=== PATIENT | male | born 1980 | race Caucasian/White ===

== ENCOUNTER → 2024-11-03 | Outpatient (CLI) | payer MEDICAID, SELFPAY ==
--- NOTE | 2024-11-03 10:28 | ST.MBS ---
Modified Barium Swallow Patient Information Study Date: 11/03/24 Study Time: 13:00 Direct Billable Minutes: 95 Total Minutes procedure & reportin Diagnosis: Oropharyngeal dysphagia R13.12 Referring Physician: Andra Rizzo Reason for Referral: Assess swallow function, assess risk for aspiration, and determine recommendations for least restrictive diet textures and compensatory strategies to improve safety of swallow. Medical History: Hx of brain cancer 32 years ago s/p two brain surgeries for tumor resection w/ chemoradiation (whole brain radiation) treatment between surgeries. Pt went deaf in 2003 and had cochlear implant placed (deafness was a late effect of radiation treatment per mother?s report). Hx of 3 CVAs per pt?s mother. CVA 05/19/2023 with brain MRI that revealed both an acute and old CVA. Date of first CVA unknown. ST at [facility] and [facility] for rehabilitation following CVA in 05/2023. Right parietal mass (cholestreatoma) removal 02/2024. CVA 07/15/2024. MBSS 07/25/24 w/ CC recommending regular with thin liquids, chin tuck with liquids. Following w/ OP ST at [facility] rehab from 08/06/2024 to present for management of cognitive-linguistic impairment and dysphagia. Referred for repeat MBSS to reassess swallow function and aspiration risk. It is requested that straws be trialed during this MBSS from treating COAL FEEDER OPERATOR, Tj. Per mother, he has no difficulty w/ foods, but continues to cough from time to time w/ liquids. He reports utilizing chin tuck ~50% of the time. Current Diet Ordered: Regular textures / Thin liquids Dentition: Natural Teeth Mental Status: Impaired Respiratory Status: Oxygenating on Room Air Penetration-Aspiration Scale Penetration-Aspiration Scale: OBJECTIVE ASSESSMENT OF SWALLOW FUNCTION (QUANTITATIVE ? PER TRIAL): PENETRATION / ASPIRATION SCALE (AMES): 1 = does not enter airway 2 = enters airway/above vocal folds/ejected 3 = enters airway/above vocal folds/not ejected 4 = enters airway/contacts vocal folds/ejected 5 = enters airway/contacts vocal folds/not ejected 6 = enters airway/below vocal folds/ejected 7 = enters airway/below vocal folds/not ejected despite effort 8 = enters airway/below vocal folds/no effort VIDEOFLOROSCOPIC SCALE SCORE (AMES): Grade I = aspiration of material that has penetrated into the laryngeal vestibule, intact cough reflex Grade II = aspiration < 10 % of the bolus, intact cough reflex Grade III = aspiration of < 10 % of the bolus, reduced cough reflex or aspiration of > 10 % of the bolus, intact cough reflex Grade IV = aspiration of > 10 % of the bolus, reduced cough reflex Penetration-Aspiration Scale Score Thin Liquid via teaspoon: Result: 2= enter airway/above vocal folds/ejected Thin Liquid via teaspoon Trial 2: Result: 1= does not enter airway Thin Liquid via small single sip: cup: Result: 7= enters airways/below vocal folds/not ejected despite effort Thin Liquid via small single sip: cup Chin tuck: Result: 1= does not enter airway Thin Liquid via small single sip: cup Effortful swallow: Result: 2= enter airway/above vocal folds/ejected Comment: Trace residues of barium on the vocal folds prior to swallowing next trial, likely trace post prandial laryngeal penetration of this trial. [place] Thick Liquid via small single sip: cup: Result: 1= does not enter airway Pudding via teaspoon: Result: 1= does not enter airway Comment: Esophageal screen - Complete clearance. 1/2 Cookie: Result: 1= does not enter airway Comment: Reflexive cough prior to swallowing this trial (trace residues on vocal folds, likely from thin liquid trials). Thin Liquid via sequential sips:straw: Result: 1= does not enter airway Thin Liquid via sequential sips:straw Trial 2: Result: 5= enters airways/contacts vocal folds/not ejected Thin Liquid via sequential sips:straw Chin tuck: Result: 1= does not enter airway Comment: Cued chin tuck 2X, fully executed on second swallow. Pt is more apt to take sequential sips w/ straw despite COAL FEEDER OPERATOR cueing him each time to take a small sip. Oral Phase Labial Seal: Escape beyond mid-chin (partially due to COAL FEEDER OPERATOR providing second sip by tsp, no other concerns for poor labial seal) Tongue Control During Bolus Hold: Posterior escape of greater than half of bolus Bolus Preparation/Mastication: Slow prolonged chewing/mashing with complete recollection Bolus Transport/Lingual Motion: Delayed initiation of tongue motion Oral Residue: Residue collection on oral structures Pharyngeal Phase Initiation of Pharyngeal Swallow: Bolus head in pyriforms Soft Palate Elevation: No bolus between soft palate and pharyngeal wall Laryngeal Elevation: Partial superior movement thyroid cart/partial apprx aryt-epig petiole Anterior Hyoid Excursion: Partial anterior movement Epiglottic Movement: Complete inversion Laryngeal Vestibule Closure at Height of Swallow: Incomplete; narrow column of air/contrast in laryngeal vestibule Pharyngeal Stripping Wave: Present - complete Pharyngoesophageal Segment Opening: Complete distension and complete duration; no obstruction of flow Tongue Base Retraction: Trace column of contrast between tongue base & post. pharyngeal wall Pharyngeal Residue: Trace residue within or on pharyngeal structures Esophageal Phase Esophageal Clearance: Complete clearance Treatment Strategies Effects of treatment strategies attemped:: Effortful swallow = somewhat effective Chin tuck = effective Diagnosis/Impression Diagnosis: Mild-moderate oropharyngeal dysphagia R13.12 MBS Impressions: The oral phase is primarily marked by... -Decreased bolus control, most notable during straw trials w/ premature posterior loss to the pyriform sinuses prior to swallow onset. -Mild oral residue of cookie, which fully cleared w/ independent use of a second swallow. The pharyngeal phase is primarily marked by... -Delayed swallow onset. -Decreased airway closure due to decreased anterior hyoid excursion and laryngeal elevation. -Aspiration of thin liquids via cup w/ reflexive cough. Laryngeal penetration of thin liquids via straw to the vocal folds w/o complete ejection. Chin tuck was most effective in reducing risk for aspiration. Recommendations Diet: Regular Textures and Thin Liquids Compensatory Strategies: Small Bites, Small Sips (Chin tuck w/ liquids), Slow Rate, Sitting upright and Assist with verbal cues to use recommended strategies (Pt lives alone, consider visual table reminder for chin tuck) Recommend Repeat Modified Barium Swallow: TBD Need for Skilled Speech Therapy Services: Yes Comment: -Train the patient in use of strategies to decrease risk for aspiration. Consider use of visual reminders for home setting. -Ongoing assessment of diet tolerance of recommended textures. As pt continues oropharyngeal strengthening, trial liquids w/ COAL FEEDER OPERATOR w/o use of chin tuck, single sips. -Train the patient in oropharyngeal exercise program to improve bolus control, swallow onset, and airway closure (lingual resistance, Naveed, effortful swallows, CTAR). Education Completed: 1. Described result of evaluation., 2. Pt understands evaluation & agrees with goals and treatment plan., 4. Family/caregivers understand evaluation & agree w/ goals & tx plan. and 7. Pt requires further education on strategies & risks. Status Active ST Patient: Active Contact Information [facility] Speech Therapy:: Joselin Acosta M.A. CCC-COAL FEEDER OPERATOR? Speech-Language Pathologist?? [facility] [address] [place] [address]? [email or web address]?? [phone]
== END | disposition home or self-care (01) ==
DX: I69.321 Dysphasia following cerebral infarction (principal)
CPT/HCPCS: 74230; 92611

== ENCOUNTER 2024-12-15 13:30 | Outpatient (RCR) | payer MEDICAID, SELFPAY ==
--- NOTE | 2024-08-06 12:42 | HP.SP.EV_ITS ---
Visit History Visit Info Date of Eval: 08/06/24 Visit: 1 Patient's Approved Number of Visits: 30 Associate Professor Of Philosophy: [email or web address] History Attending Doctor: Referring Doctor: Reason for Referral: CVA RX HERE Medical Diagnosis: CVA Date of Onset of Diagnosis: 07-15-24 Previous speech therapy: Yes Results: [facility] and [facility] Gomez for rehabilitation following CVA 05/19/2023, Right parietal mass removal 02/2024, and second CVA 07/15/2024. MBSS 07/25/24 regular with thin liquids, chin tuck with liquids INSTALLATIONS INSPECTOR to obtain full report. 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 Pain Is pain an issue with your current prescribed condition?: No Personal Preferred language: Mongolian Patient Allergies Allergies Allergies: Allergies No Known Allergies Allergy (Verified 01/11/16 15:07) Subjective Dysphagia Symptoms Reported Symptoms/Problems with: Drooling, Difficulty Swallowing Liquids and Hx of Aspiration Current Diet Solids Current Diet: Regular Current Diet Liquids Current Liquids: Thin Other: Chin Tuck with liquids Lewis free water Protocol: No NPO Date Tube Placed: 2023 Objective Dysphagia Administered by Administered by: Self Thin Liquids Administred via: Cup and Straw Positioning: Chin Tuck Oral Transit: Delay > 1 seconds Bolus clearance: significant clearance/minimal residue Gagging: No Cough: delayed, weak reflexive cough and throat clear Pharyngeal phase: suspect pharyngeal deficits and laryngeal elevation mildly restricted slow initiation Patient Report: Patient accompanied by mother for assessment. Mother reports concerns for patient's impulsivity with intake, consuming large and multiple bites/sips without regard to swallow guidelines. Limited trials this date due to patient late arrival to appointment and extensive time spent collecting PMH. Patient consumed thin liquids via cup without overt indications of aspiration or penetration in 6/8 trials, with moderate verbal and visual cues for bolus size as well as depth and length of time for chin tuck. Patient with right anterior loss of liquids with cup 6/10, and unable to execute labial seal with straw unless utilizing linguam as block as compensatory strategy. Delayed reflexive cough with liquids via straw, in 3/7 trials. Moderate verbal and visual cues for bolus size, rate, and accuracy of chin tuck. Skilled ST POC to include diet analysis, ther ex, establishing and training in swallow strategies, and providing education for dysphagia management. Mother reports difficulty accessing ST services due to payor source, and patient has not received ST for over 3 weeks since MBSS. Mother requesting 2x/week for initial portion of POC as a result. Swallowing Impairment Contributing Factors to Swallowing Impairment: Difficulty Following Directions, Reduced Oral Strength/Coordination/Sensation, Impaired Oral-Pharyngeal Transport and Delayed Swallow Initiation Impact Impact on Safety & Functioning: Risk for Aspiration Recommendations Modified Barium Swallow/Cookie Swallow Recommended: Yes Swallowing Treatment: Yes Diet Texture Recommendations Solids: Regular (Level 7) Liquids: Thin (Level 0) Other liquids: Chin Tuck with liquids Lewis free water Protocol: No Safety Saftey Precautions/Swallowing Recommendations (Check all that Apply): Supervision Needed All Meals, Reduce Distractions, Needs Verbal Cues to Use Recommended Strategies, Small Sips & Bites when Eating, Multiple Swallows and Alternate Liquids & Solids Results Swallowing Within Normal Limits: No Swallowing Diagnosis: Oropharyngeal Phase Dysphagia (R13.12) Additional: Mild-Moderate Severity: Moderate Subjective Oral Motor Subjective Patient Reports: Drooling, Slurred Speech and Difficulty being Understood Facial Drooping: Right Dentures ill fitting: No Objective Oral Motor Oral Status Dentition: Missing Teeth Labial Impairment: Moderate Observation at Rest: Right Droop Closure: Drooling Pucker: Moderate Retraction: Moderate Alternating Pucker/Retraction: Moderate Involuntary Movement noted: No Lingual Impairment: Moderate Protrusion: Moderate Retraction: Mild Lateralization: Mild Involuntary Movement: No Jaw Impairment: WNL Opening: WNL Closing: WNL Involuntary Movement: No Respiratory Status Respiratory Status: Room Air Reference: Neuro-QoL instrument Radiation Oncology Patient Plan Plan Plan: Skilled ST indicated to remediate and compensate for functional impairments in swallowing, speech, and cognitive-linguistics impacting safety and independence with socialization and health management in the community. Recommendations Treatment Warranted: Yes Treatment Warranted: Speech Sound Production, Dysphagia and Cognition Progress Prognosis: Good Frequency Frequency: 2x /Week Duration: 8 weeks Visits in this POC: 16 Patient/Family Goal Patient/Family Goal: Improve swallowing and speech intelligibility Goals that are Established Determination:: Goals will be added/modified as deemed necessary and appropriate. Therapy will be discontinued when results of re-evaluation indicate therapy is no longer needed or lack of progress has been documented. Goal #1-5 Goal #1: Patient will participate in formal cognitive-linguistic and motor speech assessments. Goal #2: Patient will demonstrate no clinical indications of dysphagia or pulmonary compromise with regular diet and thin liquids with GAGAN for adhering to compensatory swallow guidelines. Goal #3: Patient will demonstrate independence with completion of prescribed oropharyngeal HEP 10x each. Education Patient has Indicated that the Following Identified Educational Needs: Hearing/Vision/Speech Impaired The Patient has indicated that they have no educational or learning abilities that may effect their care.: Yes Patient Instruction Patient Education: Diagnosis, Treatment Plan, Goals, Safety Precautions, Diet Level and Home Exercise Program Person Taught: Patient, Family and Primary Caregiver Teaching Method: Discussion, Demonstration and Teach Back Response to teaching: Verbalize Understanding and Reinforcement Needed
--- NOTE | 2024-08-06 13:28 | HP.PTEVAL_ITS ---
Patient's Visit Information Visit Information Visit Information: MIKE GOODMAN is a 44 year old M referred to Physical Therapy by Dr. Andra Rizzo DO with a diagnosis of CVA. Date of Evaluation: 08/06/24 Physical Therapist: HAYDEE Fernandez Visit Plan Frequency: 2x /Week Duration: 3 Months Plan: Pt goes by Valentín. HE HAS HAD A R THR. 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 IDEAS: foam work EO/EC etc to work vestibular system, static and dynamic balance, possible walk with rollator to get heel to toe pattern and bigger more fluent step length 2X/ week for 12 weeks for gait training, balance activities (dynamic and static (foam EO/EC)), steps, stepping over objects, steps, sit to stand and maintaining balance, strength of R LE, with HEP HEP: ALANNAH lyons Subjective Subjective: He goes by Valentín. Mom was present. He had 2 strokes and the last one was approx July 15. His mom picked him up to go to an appt at the [facility] and his speech was slurred and his walking was worse. His first stroke was in 2023 and then had 2 surgeries and was in [facility] for 8 day. He is struggling with steps and walking and balance. He can usually walk on flat floors but if he has to step down or step up. He tends to take baby steps. They are trying to encourage taking baby steps at home. Sit to stand he has to get his balance and then takes a few baby steps to get started. He is R handed. He has had a lot of falls. He fell in the shower 2 nights ago and he tripped over the ledge at the bottom of the shower. He lives on his own but he is staying with mom now. He will have surgery in September and goal is to get pt back home for a little bit before then. He has not driven since the stroke. He is not working right now. He just got approved for SS disability. He had a mass in his ear and it destroyed his balance center. His R is totally gone and his L is 25% there. He has had brain cancer and removed. He had a R hip replacement. He uses the can after his hip replacement but not after his stroke. Moms goal is for him to be able to walk outside without mom present. Drive down to the walking path and then be able to walk on the bike path. He also wants to get a 3 wheel bike. Objective Objective: sit to stand: able to stand up using 2 hand rails but has retro LOB and steps to correct his balance and needs min A Gait: walks with WBOS, very short stride especially with the R LE (R THR) and foot abducted. The R step does not clear L stance leg. Pt did have retro LOB standing and turning head to the L to talk to therapist.. min A to correct balance LE MMT: R hip 16 and L 18.5 R knee ext 25# and L 37.4 R knee flex 15 and L 14.7 Hip ABD R 4-/5 and L 4/5 Heel and toe raises: pt has decrease balance without UE support and with UE support he has decrease ankle AROM with DF/PF Stairs: up and down recip with 2 hand rails with decreased hip flexion ascending the steps and decreased ability to kick leg out into flexion to clear heel from the back of the step wtih CGA Walking SW holding onto // bars (like to ER R hip) with CGA Bridge 1/2 normal ROM bridge Stepping over an object... not able to clear object to step over it with 1 hand on // bar but able with 2 hands on // bars with CGA Standing on blue foam for 15 seconds before loses balance retro or uses arms on the side of the // bars Standing on blue foam with EC for 8 seconds and the loses balance BW Balance/Special Test Scores Lower Extremity Functional Score: 30 Goals Goal 1:: I HEP Goal Time Frame: 8-12 Weeks Goal 2:: Be able to walk entire dept with bigger stride length and more normal TEO without veering with CGA Goal Time Frame: 8-12 Weeks Goal 3:: Be able to sit to stand and maintain good standing balance once standing Goal Time Frame: 8-12 Weeks Goal 4:: Be able to step over 4-8 inch hurdles with CGA to be able to get into the shower. Goal Time Frame: 8-12 Weeks Rehabilitation Potential Rehabilitation Potential: Good Anticipated Interventions Patient/Client Instruction: Educate patient on: Condition and Plan of Care For the Purpose of:: To decrease pain, To increase ROM, To improve nutrient delivery to tissue, To improve muscle performance and motor function, To improve ability to perform ADL's, To increase tolerance to activity/condition/position, To improve performance and independence with ADL's, To decrease level of supervision to perform tasks, To improve ability of physical actions for home/community/work/leisure, To improve gait and locomotor functions, To decrease soft tissue restriction, To increase flexibility/ROM, To improve endurance, To improve balance and To improve safety with gait Therapeutic Exercise to Include: Strength training, Endurance training, Balance training, Body mechanics, Postural training, Flexibilty training, Gait and locomotor training, Neuromotor development, Active ROM and Dynamic Lumbar Stabilization For the Purpose of:: To decrease pain, To increase ROM, To improve nutrient delivery to tissue, To improve muscle performance and motor function, To improve ability to perform ADL's, To increase tolerance to activity/condition/position, To improve performance and independence with ADL's, To decrease level of fuller pervision to perform tasks, To improve ability of physical actions for home/community/work/leisure, To improve gait and locomotor functions, To improve health of tissue, To decrease soft tissue restriction, To increase flexibility/ROM, To improve endurance, To improve balance, To improve safety with gait and To assume or resume ADL's Functional Training to Include: Gait training For the Purpose of:: To improve gait and locomotor functions and To improve safety with gait Text: Thank you for the opportunity to evaluate your patient. For Medicare and Medicare HMO plans, please review the plan of care and approve it. It will need to be FAXED BACK to us at [phone] for Medicare purposes. For Medicare only, by signing this I certify the plan of care. Please let me know if there are questions or concerns regarding this plan of care. Physician Signature: Date:
--- NOTE | 2024-09-29 14:14 | HP.PTREVAL_ITS ---
Re-Evaluation Intro: Dr. Andra Rizzo, DO, It has been my pleasure to treat MIKE GOODMAN over the last 16 visits for CVA. Please see the progress note below for an update on the physical therapy plan of care! Subjective Subjective: Pt is having surgery on Sunday on his Thyroid. Pt reports that his gait is better but it is not where it should be. He has to walk slow or he will become off balance. Mom is very happy with the stuff we are doing here and seeing the results. Objective Objective/Function: Stepping over orange hurdles....he did not do well for the first 3 with hand on the 1/2 wall. He did better with the second three with hand on the 1/2 wall. He was able to do them with a straight cane X 6 of them Attempted walking with a straight cane and pt struggles with sequencing and does not advance the R LE past the L. His step length is very small FGA: 6 Plan Plan Plan: Hold chart until after cleared from Thyroid surgery. Balance/Gait/Functional tests Balance/Special Test Scores Functional Gait Assessment Score: 6 % Disability: 80.0000 Lower Extremity Functional Score: 41 Goals Goals Goal 1:: I HEP Goal Time Frame: 8-12 Weeks Goal 2:: Be able to walk entire dept with bigger stride length and more normal TEO without veering with CGA Goal Time Frame: 8-12 Weeks Goal Progress: Progressing Goal 3:: Be able to sit to stand and maintain good standing balance once standing Goal Time Frame: 8-12 Weeks Goal Progress: Goal Met Goal 4:: Be able to step over 4-8 inch hurdles with CGA to be able to get into the shower. Goal Time Frame: 8-12 Weeks Goal Progress: Progressing Goal 5:: Be able to walk with good sequence with a straight cane for extra s upport 1 lap around the dept Goal Time Frame: 12-16 Weeks Goal 6:: Be able to go up and down the steps with 1 rail and with 1 cane with CGA and verbal cues. Anticipated Interventions Anticipated Interventions Patient/Client Instruction: Educate patient on: Condition and Plan of Care For the Purpose of:: To decrease pain, To increase ROM, To improve nutrient delivery to tissue, To improve muscle performance and motor function, To improve ability to perform ADL's, To increase tolerance to activity/condition/position, To improve performance and independence with ADL's, To decrease level of supervision to perform tasks, To improve ability of physical actions for home/community/work/leisure, To improve gait and locomotor functions, To decrease soft tissue restriction, To increase flexibility/ROM, To improve endurance, To improve balance and To improve safety with gait Therapeutic Exercise to Include: Strength training, Endurance training, Balance training, Body mechanics, Postural training, Flexibilty training, Gait and locomotor training, Neuromotor development, Active ROM and Dynamic Lumbar Stabilization For the Purpose of:: To decrease pain, To increase ROM, To improve nutrient delivery to tissue, To improve muscle performance and motor function, To improve ability to perform ADL's, To increase tolerance to activity/condition/position, To improve performance and independence with ADL's, To decrease level of supervision to perform tasks, To improve ability of physical actions for home/community/work/leisure, To improve gait and locomotor functions, To improve health of tissue, To decrease soft tissue restriction, To increase flexibility/ROM, To improve endurance, To improve balance, To improve safety with gait and To assume or resume ADL's Functional Training to Include: Gait training For the Purpose of:: To improve gait and locomotor functions and To improve safety with gait Re-Evaluation Ending Re-evaluation ending: Please do not hesitate to contact me at [phone] by phone or if you have questions or concerns regarding this new plan of care! Sincerely, HAYDEE Fernandez
--- NOTE | 2024-10-27 12:15 | HP.SP.REEV ---
Visit History Visit Info Date of Eval: 08/06/24 Today is Visit #: 1 Patient's Approved Number of Visits: 30 Assistant Inventory Manager: AGUILA History Attending Doctor: Referring Doctor: Reason for Referral: CVA RX HERE Medical Diagnosis: CVA Date of Onset of Diagnosis: 07-15-24 Previous speech therapy: Yes Results: [facility] for rehabilitation following CVA 05/19/2023, Right parietal mass removal 02/2024, and second CVA 07/15/2024. MBSS 07/25/24 regular with thin liquids, chin tuck with liquids LOCAL OPERATOR to obtain full report. 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 Pain Is pain an issue with your current prescribed condition?: No Personal Preferred language: Ethiopian Patient Allergies Allergies Allergies: Allergies No Known Allergies Allergy (Verified 01/11/16 15:07) Previous/Current Goals Goals 1-5 Previous Goal #1: Patient will participate in formal cognitive-linguistic and motor speech assessments. Goal 1 Status: LOCAL OPERATOR administered The Brief Cognitive Assessment Tool (BCAT Form A), multi-domain cognitive instrument that assesses orientation, verbal recall, visual recognition, visual recall, attention, abstraction, language, executive functions, and visuo-spatial processing in adult and older adult populations. Patient scored 25/50, indicative of severe cognitive impairment. Scores are as follows: Orientation 4/6 Immediate Verbal Recall 4/4 Visual Recognition/Naming 3/3 Attention:5/7 Abstraction 3/3 Language 2/3 Executive Function 1/4 Visuo-Spatial 2/4 Delayed Verbal Recall 1/4, increased to 3/4 with min cues Immediate Story Recall 1/2 Delayed Visual Memory 1/3 Story Recognition 5/5 Previous Goal #2: Patient will demonstrate no clinical indications of dysphagia or pulmonary compromise with regular diet and thin liquids with GAGAN for adhering to compensatory swallow guidelines. Goal 2 Status: Patient endorses forgetting to execute chin tuck consistently at home. Therapeutic trials with thin water via cup to assess timeliness and depth of chin tuck for airway protection. Accuracy 7/10, increased to 10/10 with minimal verbal and visual cues. Patient has MBSS scheduled on 11/03/24 to determine current abilities with testing. Previous Goal #3: Patient will demonstrate independence with completion of prescribed oropharyngeal HEP (CTAR, Effortful, Ramya) 10x each. Goal 3 Status: Patient was educated on Naveed, Ramya, Effortful swallow and CTAR exercises at 1x a day for 20 reps. He was able to complete Ramya, Effortful and CTAR with cues but Naveed will need re-educated. He was provided written instructions for these. Also gave him a table card for using chin tuck to chest as mother reported MBSS (in [place] ) told him he was to do this but he isn't. Visual reminder may be helpful for him. Patient reported that he has focused on effortful swallow, and CTAR 5 times each twice a day. Previous Goal #4: Patient will complete alternating and divided attention tasks at 80% with minimal cues to promote safety and independence in the home/community. Goal 4 Status: Pt completing an alternating attention task via connecting colored dots based on a list of colors with 80% acc () with min-mod verbal and visual cues to recall where he left off in the puzzle if he lifted his pen. Completed alternating attention between conversation and sorting cards into categories. He was able to do sort red vs black while talking. When removing the hearts only he often stopped while speaking about his favorite movie/conversation. Previous Goal #5: Patient will utilize compensatory executive functioning / processing strategies identified and implemented during structured therapeutic tasks (i.e., note taking / list making, adhering to schedules, remove distractions, formulate a plan, double check work, talk out loud, etc.) to facilitate improved cognitive processing and achievement of the highest level of safe, independent functioning with 80% accuracy when given minimal cues. Goal 5 Status: Completion of medication management tasks as locating and correcting errors in mock medication digital media planner for training in compensatory strategies for planning, organization and interpretation of information. Moderate cues for task completion: Establish Routines: Consistent routines reduce decision fatigue and provide structure. Break Down Large Tasks: Divide complex tasks into smaller, more manageable steps. Develop a plan before initiating a task. Use Visual Aids: Calendars, checklists, and visual schedules can aid in organization and task completion. Limit Distractions: Create a dedicated workspace and minimize interruptions. Self-Reflection: Regularly assess progress and adjust strategies as needed. Interpreting med label per dosage: 4/4 (100%), ID error in digital media planner: 7/ (70%), Verbalize how to correct error: 10/10 (100%) Goals 6-10 Previous Goal #6: Patient will complete functional auditory/visual short term recall tasks at 80% with minimal cues for use of compensatory strategies. Goal 6 Status: Goal was not addressed in favor of previous goals. Previous Goal #7: Visual STM for 8 unrelated pictures/objects with >15 minute delay 10/14 with independent use of visualization and "mental picture". Goal 7 Status: Goal was not addressed in favor of previous goals. Subjective Dysphagia Symptoms Reported Symptoms/Problems with: Drooling, Difficulty Swallowing Liquids and Hx of Aspiration Current Diet Solids Current Diet: Regular Current Diet Liquids Current Liquids: Thin Other: Chin Tuck with liquids Lewis free water Protocol: No NPO Date Tube Placed: 2023 Objective Dysphagia Administered by Administered by: Self Thin Liquids Administred via: Cup and Straw Positioning: Chin Tuck Oral Transit: Delay > 1 seconds Bolus clearance: significant clearance/minimal residue Gagging: No Cough: delayed, weak reflexive cough and throat clear Pharyngeal phase: suspect pharyngeal deficits and laryngeal elevation mildly restricted slow initiation Patient Report: Patient accompanied by mother for assessment. Mother reports concerns for patient's impulsivity with intake, consuming large and multiple bites/sips without regard to swallow guidelines. Limited trials this date due to patient late arrival to appointment and extensive time spent collecting PMH. Patient consumed thin liquids via cup without overt indications of aspiration or penetration in 6/8 trials, with moderate verbal and visual cues for bolus size as well as depth and length of time for chin tuck. Patient with right anterior loss of liquids with cup 09/16, and unable to execute labial seal with straw unless utilizing linguam as block as compensatory strategy. Delayed reflexive cough with liquids via straw, in 3/7 trials. Moderate verbal and visual cues for bolus size, rate, and accuracy of chin tuck. Skilled ST POC to include diet analysis, ther ex, establishing and training in swallow strategies, and providing education for dysphagia management. Mother reports difficulty accessing ST services due to payor source, and patient has not received ST for over 3 weeks since MBSS. Mother requesting 2x/week for initial portion of POC as a result. Swallowing Impairment Contributing Factors to Swallowing Impairment: Difficulty Following Directions, Reduced Oral Strength/Coordination/Sensation, Impaired Oral-Pharyngeal Transport and Delayed Swallow Initiation Impact Impact on Safety & Functioning: Risk for Aspiration Recommendations Modified Barium Swallow/Cookie Swallow Recommended: Yes Swallowing Treatment: Yes Diet Texture Recommendations Solids: Regular (Level 7) Liquids: Thin (Level 0) Other liquids: Chin Tuck with liquids Lewis free water Protocol: No Safety Saftey Precautions/Swallowing Recommendations (Check all that Apply): Supervision Needed All Meals, Reduce Distractions, Needs Verbal Cues to Use Recommended Strategies, Small Sips & Bites when Eating, Multiple Swallows and Alternate Liquids & Solids Results Swallowing Within Normal Limits: No Swallowing Diagnosis: Oropharyngeal Phase Dysphagia (R13.12) Additional: Mild-Moderate Severity: Moderate Subjective Oral Motor Subjective Patient Reports: Drooling, Slurred Speech and Difficulty being Understood Facial Drooping: Right Dentures ill fitting: No Objective Oral Motor Oral Status Dentition: Missing Teeth Labial Impairment: Moderate Observation at Rest: Right Droop Closure: Drooling Pucker: Moderate Retraction: Moderate Alternating Pucker/Retraction: Moderate Involuntary Movement noted: No Lingual Impairment: Moderate Protrusion: Moderate Retraction: Mild Lateralization: Mild Involuntary Movement: No Jaw Impairment: WNL Opening: WNL Closing: WNL Involuntary Movement: No Respiratory Status Respiratory Status: Room Air Reference: Neuro-QoL instrument Radiation Oncology Patient Plan Plan Plan: Skilled ST indicated to remediate and compensate for functional impairments in swallowing and cognitive-linguistics impacting safety and independence with socialization and health management in the community. Recommendations Treatment Warranted: Yes Treatment Warranted: Receptive/ Expressive Language, Dysphagia and Cognition Progress Prognosis: Good Frequency Frequency: 1x/Week Duration: 4-8 weeks Visits in this POC: 16 Patient/Family Goal Patient/Family Goal: Improve swallowing and speech intelligibility Goals that are Established Determination:: Goals will be added/modified as deemed necessary and appropriate. Therapy will be discontinued when results of re-evaluation indicate therapy is no longer needed or lack of progress has been documented. Goal #1-5 Goal #1: Patient will demonstrate no clinical indications of dysphagia or pulmonary compromise with regular diet and thin liquids with GAGAN for adhering to compensatory swallow guidelines. Goal #2: Patient will utilize compensatory executive functioning / processing strategies identified and implemented during structured therapeutic tasks (i.e., note taking / list making, adhering to schedules, remove distractions, formulate a plan, double check work, talk out loud, etc.) to facilitate improved cognitive processing and achievement of the highest level of safe, independent functioning with 80% accuracy when given minimal cues. Goal #3: Patient will complete problem solving tasks for independent living in his home on 4/5 trials on 2/3 consecutive sessions with minimal cues. Education Patient has Indicated that the Following Identified Educational Needs: Cognitively Impaired Patient Instruction Patient Education: Diagnosis Person Taught: Patient Response to teaching: Verbalize Understanding
--- NOTE | 2024-12-15 14:59 | HP.PTDCSUM ---
Discharge Summary D/C summary: It has been my pleasure to treat MIKE GOODMAN referred by Dr. Andra Rizzo DO, with the diagnosis of CVA for a total of 30 visit(s). Discharge Date: 12/15/24 Please see the following information for a summary of their discharge status. Subjective Subjective: He is getting a safety trainer. He is still having some balance issues. Pain Tailbone: Pain Intensity (Out of 10): 0 Overall Improvement % Improvement: 70 Objective Objective/Function: Stairs: up and down recip with 1 hand with CGA. Pt walks with less veering with walking stick and has increase stride length with walking stick. He has a hard time advancing R LE Goals Goal 1:: I HEP Goal Progress: Goal Met Goal 2:: Be able to walk entire dept with bigger stride length and more normal TEO without veering with CGA Goal Progress: Goal Met Goal 3:: Be able to sit to stand and maintain good standing balance once standing Goal Progress: Goal Met Goal 4:: Be able to step over 4-8 inch hurdles with CGA to be able to get into the shower. Goal Progress: Progressing Goal 5:: Be able to walk with good sequence with a straight cane for extra support 1 lap around the dept Goal Progress: Goal Met Goal 6:: Be able to go up and down the steps with 1 rail and with 1 cane with CGA and verbal cues. Goal Progress: Goal Met Plan Plan: DC PT D/C Information Discharge Comments: DC PT d/c sentence: If there are questions or concerns regarding this patient's physical therapy, please feel free to call me at [phone]. Thank you for the referral of this patient. Sincerely, Katharina Noriega, MPT Balance/Gait/Functional tests Balance/Special Test Scores Functional Gait Assessment Score: 6 % Disability: 80.0000 Lower Extremity Functional Score: 42 Improvement % Improvement: 70
--- NOTE | 2024-12-23 13:15 | HP.SP.DC ---
ST Discharge Summary Discharged: Discharge: Jesus Manuel Muniz was discharged from [facility] speech therapy as of 12/01/24. He was evaluated on 08/06/24 with a diagnosis of CVA which was on 07/15/24. Treatment Diagnoses: Dysphagia Oropharyngeal Phase R13. 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. He was treated for a total of 24 visits during this course of therapy. His goals focused on no clinical indications of dysphagia, independence with completion of prescribed oropharyngeal HEP 10x each, utilization of compensatory executive functioning / processing strategies, problem solving and divided attention. Patient was educated on Naveed, Ramya, Effortful swallow and CTAR exercises at 1x a day for 20 reps. He was able to complete Ramya, Effortful and CTAR with cues but Naveed will need re-educated. He was provided with written instructions for these. Also gave him a table card for using chin tuck to chest as mother reported MBSS (in [place] ) told him he was to do this but he isn't. Visual reminder may be helpful for him. Patient reported that he has focused on effortful swallow, and CTAR 5 times each twice a day independently. He was educated on the following strategies for recall/executive functioning/processing and he reported he is able to use a calendar, make lists and limit distractions. He reported being able to complete tasks at home independently. If he has difficulty then he calls his mother. During problem solving he was able to complete questions with appropriate answers. I feel he calls his mother more due to anxiety than inability. Establish Routines: Consistent routines reduce decision fatigue and provide structure. Break Down Large Tasks: Divide complex tasks into smaller, more manageable steps. Develop a plan before initiating a task. Use Visual Aids: Calendars, checklists, and visual schedules can aid in organization and task completion. Limit Distractions: Create a dedicated workspace and minimize interruptions. Self-Reflection: Regularly assess progress and adjust strategies as needed. Pt completed an alternating attention task via connecting colored dots based on a list of colors with 80% acc () with min-mod verbal and visual cues to recall where he left off in the puzzle if he lifted his pen. Completed alternating attention between conversation and sorting cards into categories well. Patient reported no difficulties at home at the time of discharge that would be treated by speech therapy. Patient was in agreement with discharge. Please see reports and daily notes for complete details. Thank you for allowing me to participate in the care of this patient.
== END 2024-12-15 19:00 | disposition home or self-care (01) ==
LOC: PT 13:30
DX: Z86.73 Personal history of transient ischemic attack (TIA), and cerebral infarction without residual deficits (principal)
CPT/HCPCS: 92507; 92523; 92526; 97110; 97116; 97129; 97130; 97161; 97530